=== PATIENT | female | born 1955 | race Two or more races ===

== ENCOUNTER 2018-11-25 09:14 | Day surgery (SDC) | payer BC ==
[~2018-11-25] VITALS: Ht 162.6 cm; Wt 62.3 kg
[2018-11-25] VITALS (11 sets, daily range): BP systolic 106–153; BP diastolic 68–89; PULSE 77–87; RESP 12–20; Ht 162.6 cm; Wt 62.3 kg
[2018-11-25] MEDS ORDERED: mvi (11:10)
[2018-11-25] MEDS ORDERED: PROPOFOL 40 ML ONE (11:54)
--- NOTE | 2018-11-25 12:02 | PREAC ---
Date/Time of Note Date/Time of Note DATE: 11/25/18 TIME: 11:59 Anesthesia Eval and Record Evaluation Time Pre-Procedure Interview DATE: 11/25/18 TIME: 11:59 Age 63 Sex female NPO: 8 hrs Preoperative diagnosis Screening Planned procedure Colonoscopy Past Medical History Past Medical History: Includes Neuro: Other (Syncopy) Surgery & Anesthesia Issues No known issue Meds Anticoagulation: No Beta Raul within 24 hr: No Reason Beta Raul not given: Pt. not on B-Raul Reported Medications [mvi] No Conflict Check 11/25/18 Meds reviewed: Yes Allergies Coded Allergies: acetaminophen (Verified Allergy, Intermediate, VOMITING, 11/25/18) hydrocodone (Verified Allergy, Intermediate, VOMITING, 11/25/18) Allergies Reviewed: Yes Labs/Studies Labs Reviewed: Reviewed by anesthesiologist test: N/A Pre-procedure Exam Airway: Adequate mouth opening Mallampati: Mallampati II Teeth: Normal Lung: Normal Heart: Normal ASA Physical Status ASA physical status: 2 Emergency: None Planned Anesthetic General/MAC: MAC Pre-operative Attestations Prior to commencing anesthesia and surgery, the patient was re-evaluated, there was verification of: *The patient's identity *The results of appropriate recent lab work and preoperative vital signs *The above evaluation not changing prior to induction *Anesthetic plan, risk benefits, alternative and complications discussed with patient/family; questions answered; patient/family understands, accepts and wishes to proceed. HERNANDEZ COLE MD November 25, 2018 12:02
--- NOTE | 2018-11-25 12:31 | HPN ---
Date/Time of Note Date/Time of Note DATE: 11/25/18 TIME: 12:31 Interval H&P Admission Note Pt. seen H&P reviewed: No system changes SHAYAN BORRERO November 25, 2018 12:31
--- NOTE | 2018-11-25 12:41 | PAC ---
Date/Time of Note Date/Time of Note DATE: 11/25/18 TIME: 12:40 Post-Anesthesia Notes Post-Anesthesia Note Activity: WNL Respiratory function: WNL Cardiovascular function: WNL Mental status: Baseline Pain reasonably controlled: Yes Hydration appropriate: Yes Nausea/Vomiting absent: Yes HERNANDEZ COLE MD November 25, 2018 12:41
== END 2018-11-25 15:23 | disposition home or self-care (01) ==
LOC: GIL 09:14
PROVIDERS: ATTEND Internal Medicine Gastroenterology
DX: Z12.11 Encounter for screening for malignant neoplasm of colon (principal)
CPT/HCPCS: 45378; Z7610